=== PATIENT | male | born 1965 | race Caucasian/White ===

== ENCOUNTER 2018-04-24 18:09 | Emergency (ER) | payer BC, SELFPAY ==
[2018-04-24 18:12] VITALS: BP 119/80; PULSE 88; RESP 16; TEMP 36.7; O2SAT 98; BMI 27.1
--- NOTE | 2018-04-24 19:04 | RAD_ITS ---
STUDY: X-RAY - RIGHT KNEE REASON FOR EXAM: Male, 52 years old. Twisting injury TECHNIQUE: view(s) of the knee. COMPARISON: None. FINDINGS: Normal visualized distal femur. Normal visualized proximal tibia and fibula. Normal proximal tibiofibular articulation. Normal medial femorotibial compartment. Normal lateral femorotibial compartment. There is mild degenerative arthrosis of the patellofemoral articulation. There is a trace joint effusion. There is mild edema of the medial side of the knee. RAD/Knee 4 or More Views IMPRESSION: Soft tissue swelling medial aspect of the knee. No visualized fracture cannot exclude ligamentous injury. Electronically Signed: My Davis MD at 20:02 EST Tel , Service support ,
--- NOTE | 2018-04-24 21:03 | ED.VISSUMM ---
- ER Visit Summary Date of Service: 04/24/18 Chief Complaint: Right knee pain History of Present Illness: The patient is a 52 M who presents with right knee pain that began yesterday. Patient states he was walking when he felt the pain began in his right knee. Patient describes the pain is burning, throbbing, and tightness. Patient states pain is worse with flexion. Patient states the pain improves with rest. Patient states he has to stand at his job for long periods of time. Physical Examination: Vital signs are stable. Patient is afebrile. Patient is in no acute distress. Musculoskeletal exam reveals tenderness over the right knee. There is no effusion. There is no bony crepitance or step-off. Range of motion was slightly limited in flexion secondary to pain. There is no laxity appreciated. Varus and valgus stress test were negative. Enzo test was negative. Ronald's test was negative. Neurovascular exam was intact. Test Results: X-rays of the right knee were obtained. There is some degenerative changes and soft tissue swelling. There is no acute fracture loose body. Emergency Department Course and Treatment: Patient was instructed to ice and elevate the right knee. Patient was given a note for work to limit his standing and ambulation. Patient was instructed to take ibuprofen or Naprosyn as needed for pain. Patient understood and was agreeable with the plan. All questions were answered. Disposition: Discharge home Impression: Right knee pain This note was generated with [employer] dictation software. It may contain incorrect words, spelling, and punctuation that were not noted in review of the chart prior to signing ED Disposition - Plan for ED Patient: Disposition: Home or Assisted Living Chief Complaint: Lower Extremity Injury Diagnosis: Right knee pain Instructions: ED Meniscal Injury Knee Poss Prescriptions: Naproxen [Naprosyn] 500 mg PO BID PRN #20 tab Referrals: Олег Barry DO [Primary Care Provider] -
== END 2018-04-24 21:28 | disposition home or self-care (01) ==
PROVIDERS: Emergency Provider Emergency Medicine; Family Provider Student in an Organized Health Care Education/Training Program; PCP Student in an Organized Health Care Education/Training Program
DX: M25.561 Pain in right knee (principal); Z72.0 Tobacco use
CPT/HCPCS: 73564; 99282

== ENCOUNTER 2019-06-02 20:58 | Emergency (ER) | payer BC, SELFPAY ==
[2019-06-02 20:59] VITALS: BP 120/87; PULSE 115; RESP 18; TEMP 37.1; O2SAT 98; BMI 27.1
--- NOTE | 2019-06-02 21:27 | RAD_ITS ---
STUDY: X-RAY - LEFT KNEE REASON FOR EXAM: Male, 53 years old. Fall. Pain. TECHNIQUE: 4 view(s) of the knee. COMPARISON: 04/24/2018. FINDINGS: Normal visualized distal femur. Normal visualized proximal tibia and fibula. Normal proximal tibiofibular articulation. There is no demonstrated fracture. Normal medial femorotibial compartment. Normal lateral femorotibial compartment. Normal patellofemoral articulation. There is a soft tissue prominence in the suprapatellar region suggesting a small volume joint effusion. Chondrocalcinosis is seen of both menisci. The soft tissue structures are unremarkable. RAD/Knee 4 or More Views IMPRESSION: No acute fracture or dislocation. Small effusion. Electronically Signed: Eder Laurent MD at 21:41 EST , Service support ,
--- NOTE | 2019-06-02 21:38 | ED.DCSUM_ITS ---
- ER Visit Summary Date of Service: 06/02/19 Chief Complaint: Knee pain History of Present Illness: The patient is a 53 M with left knee pain since yesterday. He slipped on ice and his knee bent backwards. Pain is worse with use. He has a remote history of ligamentous injury and surgery to the right knee. No other injuries or complaints. Physical Examination: Inspection is unremarkable except for mild swelling to the left knee. Effusion noted. No laxity. Good extension. Range of motion intact. Normal strength and sensation distally. Test Results: X-rays unremarkable. Emergency Department Course and Treatment: Patient injured his left knee. Exam was reassuring. X-rays were unremarkable. This is likely soft tissue injury. Everything seems stable at this point, but I am advising rest, ice, elevation. Use anti-inflammatories for pain. [place] for breakthrough pain. Follow-up with primary care for recheck. Return for any new or worsening issues. Treatment Plan: As above Disposition: Discharge Impression: Left knee pain This note was generated with [employer] dictation software. It may contain incorrect words, spelling, and punctuation that were not noted in review of the chart prior to signing ED Disposition - Plan for ED Patient: Referrals: Олег Barry DO [Primary Care Provider] -
--- NOTE | 2019-06-02 21:40 | DCINST.ED_ITS ---
ED Disposition - Plan for ED Patient: Instructions: Knee Sprain Prescriptions: Hydrocodone Bitart/Apap 5-325 [[place] 5MG-325MG] 1 tab PO Q6H PRN PRN 2 Days #8 tab PRN Reason: Pain Prescription Printed Referrals: Олег Barry DO [Primary Care Provider] -
== END 2019-06-02 22:17 | disposition home or self-care (01) ==
LOC: ED 21:14
PROVIDERS: Emergency Provider Emergency Medicine; PCP Student in an Organized Health Care Education/Training Program
DX: M25.562 Pain in left knee (principal); M25.462 Effusion, left knee; Z72.0 Tobacco use
CPT/HCPCS: 73564; 99283

== ENCOUNTER 2023-09-28 10:45 | Emergency (ER) | payer SELFPAY ==
[2023-09-28 10:46] VITALS: BP 114/79; PULSE 93; RESP 14; TEMP 36.8; O2SAT 96; BMI 27.5
--- NOTE | 2023-09-28 11:31 | EX.ED.GUMALE ---
HPI History of Present Illness Chief Complaint: Male Pain/Injury Narrative Narrative: Patient is a 58-year-old male with no significant medical history does not see a physician regularly, presenting to the emergency department with what he is concerned with a inguinal hernia that has been ongoing for the last 1.5 months. 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 He has noticed it over the last 1.5 months however today, continue to stay out and look bigger than normal so he is here for evaluation. He denies any specific pain, denies any fever chills nausea or vomiting. He does have history of 1 hernia repair however this was years ago. He denies any difficulty using the restroom, denies any other abdominal surgeries. PFSH PFSH Medical History no medical history Allergy/AdvReac Type Severity Reaction Status Date / Time No Known Allergies Allergy Verified 09/28/23 10:46 Family History no significant family his Surgical History no surgical history Social History Smoking Status: Current every day smoker tobacco type: cigarettes ROS ROS ED ROS Narrative Constitutional: Negative for fever, chills, weight loss, weakness Eyes: Negative for vision loss, vision change, double vision ENT: Negative for any sore throat, ear pain, congestion Cardiovascular: Negative for any chest pain, tightness, palpitations Respiratory: Negative for any cough, sputum production, hemoptysis, dyspnea, dyspnea on exertion, orthopnea Gastrointestinal: Negative for any abdominal pain, nausea, vomiting, diarrhea, constipation, blood in stool, blood in vomit. Positive for lump to the inguinal area : Negative for any urinary frequency, dysuria, retention, blood in urine Muscle skeletal: Negative for any neck pain, back pain Neurological: Negative for any headache, syncope, dizziness Skin: Negative for any rashes, itching, abrasions, lacerations Psychiatric: Negative for any depression, anxiety, stress, suicidal ideation, homicidal ideation Hematologic: Negative for any excessive bruising, easy bleeding EXAM Physical Exam Narrative Exam Narrative: Vital signs reviewed. HEET: Head normocephalic atraumatic, TMs clear bilaterally. Posterior pharynx is clear, moist mucous membranes. Nares clear bilaterally. Neck: Supple with no lymphadenopathy or tenderness. No signs of meningismus. Cardiac: Regular rate and rhythm no murmurs gallops or rubs, equal peripheral pulses bilaterally. Respiratory: Lungs clear to auscultation bilaterally. No chest tenderness. Abdomen: Soft, nontender, nondistended. No abdominal bruit or pulsatile masses. No hepatosplenomegaly. Patient does have what appears to be a right-sided inguinal hernia, it is soft, easily reducible, there is no evidence of redness, active bowel sounds in all quadrants. Negative for any significant tenderness, no peritoneal signs. Extremities: No peripheral edema, no signs of gross trauma or deformity. Active full range of motion of all extremities. Neuro: Cranial nerves II through XII intact, no focal neurological deficits. Skin: Clean dry and intact with no rash, purpura, petechiae, vesicles or pustules. Backs/flank: No CVA tenderness, no midline spinal tenderness, no deformity. Psych: Normal mood and affect. No SI, HI or acute psychosis. Const Vital Signs: 09/28/23 10:46 Temperature 98.3 F Temperature Source Temporal Pulse Rate 93 Respiratory Rate 14 Blood Pressure 114/79 Blood Pressure Mean 90 Pulse Ox 96 Oxygen Delivery Method Room Air [facility] [place] MDM Treatment and Re-Evaluation Narrative: Differential diagnosis includes however is not limited to: Inguinal hernia, incarcerated hernia, bowel obstruction Patient appears to be in no obvious distress vital signs are stable, patient is nontoxic. Presenting to the emergency department with complaints of inguinal hernia to the right side. On my examination, while the patient was standing, the inguinal hernia was present. There is no erythema, there is no significant edema, there is no significant tenderness. I had the patient lay down, I was able to reduce the hernia without any difficulty. At this time, I do not believe that any immediate surgical intervention needed. I do believe the patient can follow-up outpatient. The patient is agreeable. The patient structured to ice the area, and to follow-up outpatient. He was given red flag signs to return such as worsening pain, redness, fever, chills, uncontrollable pain. He is happy with the plan of care, instructed return for any worsening symptoms. Discharge Plan Triage Chief Complaint: Male Pain/Injury ED Midlevel Provider: Diony Lou ED Provider: Kristine Torres Dx/Rx/DC Orders Clinical Impression: Inguinal hernia Instructions: Hernia Repair Surgery, How a Hernia Develops, ED Hernia (Adult) Stand Alone Forms: Work / School Excuse Primary Care Provider: Олег Barry Referrals: Олег Barry DO [Primary Care Provider] - Peyton Viera MD [Med Staff - Active Staff] - Activity Restrictions/Additional Instructions: This may come out several times a day. There was try to push it back in. Try to decrease lifting greater than 30 pounds. Please follow-up with surgery to get this resolved. Return for any worsening uncontrolled pain, firmness to the hernia, fever, chills. Print Language: Kinyarwanda Disposition Disposition: Home, Self Care
[2023-09-28 11:51] VITALS: BP 134/57; PULSE 81; RESP 16; TEMP 36.4; O2SAT 98
== END 2023-09-28 11:51 | disposition home or self-care (01) ==
PROVIDERS: Emergency Provider Emergency Medicine; PCP Student in an Organized Health Care Education/Training Program; Visit Provider Emergency Medicine
DX: K40.90 Unilateral inguinal hernia, without obstruction or gangrene, not specified as recurrent (principal); F17.210 Nicotine dependence, cigarettes, uncomplicated
CPT/HCPCS: 99282

== ENCOUNTER 2023-11-30 17:15 | Emergency (ER) | payer BC, SELFPAY ==
[2023-11-30 17:16] VITALS: BP 94/74; PULSE 113; RESP 18; TEMP 36.8; O2SAT 96; BMI 26.7
--- NOTE | 2023-11-30 17:46 | EDS_ITS ---
HPI History of Present Illness Chief Complaint: Laceration Informant: patient Narrative Narrative: 58-year-old male was cutting onions today when he inadvertently cut the distal tip of the right ring finger off. He notes that it continued to bleed. He washed it with tap water hydrogen peroxide and continued to bleed so he came to emergency. He notes his tetanus is not up-to-date but does not feel that it is high risk enough that to warrant an update. He is not on blood thinners. PFSH PFSH Allergy/AdvReac Type Severity Reaction Status Date / Time No Known Allergies Allergy Verified 11/30/23 17:16 Social History Smoking Status: Current every day smoker tobacco type: cigarettes ROS ROS ED Constitutional Constitutional ED: Denies chills or weight loss Eyes Eyes: Denies change in vision or diplopia ENT ENT ED: Denies ear pain, rhinorrhea or sore throat Cardiovascular Cardiovascular: Denies chest pain, orthopnea, palpitations or racing heartbeat Respiratory/Chest Respiratory/Chest: Denies cough, dyspnea or orthopnea Gastrointestinal Gastrointestinal: Denies abdominal pain, diarrhea, nausea or vomiting Genitourinary Genitourinary ED: Denies dysuria, hematuria or urinary frequency Musculoskeletal Musculoskeletal: Reports other Details: See history of present illness ; Denies arthralgias or myalgias Integumentary Denies abscess or rash Neurologic Neurologic: Denies headache(s) or weakness Psychiatric Psychiatric: Denies anxiety, depression, suicidal ideation or suicidal thoughts Endocrine Endocrinology: Denies polydipsia, polyphagia or polyuria Allergic/Immunologic Allergic/Immunologic ED: Denies mouth swelling, tongue swelling or urticaria EXAM Physical Exam Const Vital Signs: 11/30/23 17:16 Temperature 98.3 F Temperature Source Temporal Pulse Rate 113 H Respiratory Rate 18 Blood Pressure 94/74 Blood Pressure Mean 80 Pulse Ox 96 Oxygen Delivery Method Room Air Positive well nourished and well developed General Appearance ED: well developed HEENT Reports normocephalic, head/scalp atraumatic and moist mucous membranes Eyes PERRL and EOMs intact bilaterally Neck no lymphadenopathy, supple and no JVD Resp normal respiratory effort and clear to auscultation bilaterally Cardio regular rate, regular rhythm and no murmurs GI normal to inspection, nondistended, normoactive bowel sounds and non-tender Palpation: soft Back/Spine no CVA tenderness and normal ROM Extremity Extremity Narrative: Right ring finger distal tip shows skin avulsion of about a dime sized area. There is one central vessel in the center that is mildly bleeding dark red nonpulsatile blood. There is no nail involvement. No exposed bone. General Extremety ED: Negative for edema General Extremity: Negative for edema Neuro oriented x3 and CN's II-XII intact bilaterally Sensorium / Orientation: alert Motor Exam: strength 5/5 throughout Psych mental status grossly normal Mood & Affect: Negative for depressed or tearful Skin no rashes or lesions noted and no wounds MDM MDM MDM Narrative Medical decision making narrative: Direct pressure was applied as well as a tourniquet. We were able to get the bleeding slowed down. Gelfoam was applied and then direct pressure for 2 more minutes. The fingertip of a glob was then applied and then tube gauze followed by [place]. I suspect that this will further stop the bleeding. He was advised to keep the dressing on for 48 hours and then remove it followed by simple wound care. He is to return if any concerns for infection bleeding or worsening. Patient notes understanding the plan is comfortable with the History & Record Review Discussion w/independent historian: Patient Discharge Plan Triage Chief Complaint: Laceration ED Provider: Jim Rueda Dx/Rx/DC Orders Clinical Impression: Avulsion of finger tip, Bleeding from finger Instructions: ED Skin Tear (Skin Avulsion) Primary Care Provider: Олег Barry Referrals: Олег Barry DO [Primary Care Provider] - As Needed Print Language: Swedish Disposition Disposition: Home, Self Care
--- NOTE | 2023-11-30 17:58 | ED.RN ---
Patient left prior to receiving d/c instructions
== END 2023-11-30 17:59 | disposition home or self-care (01) ==
LOC: ED 17:53
PROVIDERS: Emergency Provider Emergency Medicine; PCP Student in an Organized Health Care Education/Training Program; Visit Provider Emergency Medicine
DX: S61.204A Unspecified open wound of right ring finger without damage to nail, initial encounter (principal); F17.210 Nicotine dependence, cigarettes, uncomplicated; A52.19 Other symptomatic neurosyphilis; Y93.G1 Activity, food preparation and clean up
CPT/HCPCS: 99282

== ENCOUNTER 2024-12-02 15:30 | Emergency (ER) | payer BC, SELFPAY ==
[2024-12-02 15:32] VITALS: BP 106/83; PULSE 92; RESP 16; TEMP 36.9; O2SAT 97; BMI 27.1
--- NOTE | 2024-12-02 16:27 | EDS_ITS ---
HPI History of Present Illness Chief Complaint: Wound Informant: patient Narrative Narrative: Wound check left upper back. Mowed the lawn yesterday, today noted increasing pain bump on his left upper back. No fevers no drainage. No diabetes history. Prior similar symptoms: No PFSH PFSH Medical History no medical history Allergy/AdvReac Type Severity Reaction Status Date / Time No Known Allergies Allergy Verified 12/02/24 15:32 Family History no significant family his Surgical History no surgical history Social History Smoking Status: Current every day smoker tobacco type: cigarettes ROS ROS ED Constitutional Constitutional ED: Denies fever(s) Cardiovascular Cardiovascular: Denies chest pain Respiratory/Chest Respiratory/Chest: Denies cough Gastrointestinal Gastrointestinal: Denies diarrhea or vomiting Musculoskeletal Musculoskeletal: Denies none Integumentary Reports abscess; Denies rash or wounds Neurologic Neurologic: Denies weakness EXAM Physical Exam Const Vital Signs: 12/02/24 15:32 12/02/24 18:39 Temperature 98.4 F 98.4 F Temperature Source Oral Pulse Rate 92 92 Respiratory Rate 16 16 Blood Pressure 106/83 H 106/83 H Blood Pressure Mean 90 90 Pulse Ox 97 97 Oxygen Delivery Method Room Air Positive well nourished and well developed General Appearance ED: well developed HEENT normocephalic and atraumatic Eyes General Eye ED: Yes normal appearance of both eyes Neck full ROM Resp normal respiratory effort and normal air movement Cardio regular rate and regular rhythm GI soft to palpation Back/Spine Back/Spine Narrative: Upper back left side just superior medial to the scapula 3 x 3 cm induration and mild erythema no active drainage. Extremity normal to inspection and full ROM Neuro oriented x3 Skin Skin Narrative: See above MDM MDM MDM Narrative Medical decision making narrative: Interventions / MDM: Differential diagnosis: Abscess, insect bite Diagnosis considered but do not suspect: N/A My EKG interpretation: N/A Imaging independently reviewed and interpreted by myself: N/A External documents reviewed: N/A Test considered but not ordered:N/A ED course: Patient area of induration left upper back, started today getting larger. Afebrile is nontoxic. Discussed incision and drainage as it is expanding. He agrees. Procedure note: Written consent obtained. Normal sterile conditions. Alcohol prep of the skin performed. 1% lidocaine 5 cc used for local analgesia. Additional skin prep performed. 11 blade, incision bloody drainage no exudates. Loculations were broken. Flushed with normal saline. Dressing was placed. Patient tolerated procedure well. Discussed wound care with the patient with dressing changes. Outpatient follow- up with Dr. Nina snyder. All questions were answered. Re-evaluation: stable Disposition discussed with patient/family/significant other: Patient Case discussed with consulting clinician: N/A This note was generated with [employer] dictation software. It may contain incorrect words, spelling, and punctuation that were not noted in checking the note before signing. Discharge Plan Triage Chief Complaint: Wound ED Provider: Santo Fisher Dx/Rx/DC Orders Clinical Impression: Abscess, Insect bite Instructions: ED Abscess Incision And Drainage, ED Infected Insect Bite or Sting Primary Care Provider: Олег Barry Referrals: Олег Barry DO [Primary Care Provider] - 1 Week Activity Restrictions/Additional Instructions: Your wound was incised and drained. There is no exudative drainage. This should help your wound improved. Follow-up with your doctor for wound check. Daily dressing changes. Any fevers chills worsening symptoms, return to the ED for reevaluation. Print Language: Guyanese Disposition Disposition: Home, Self Care Discharge Date/Time: 12/02/24 18:39
[2024-12-02 18:39] VITALS: BP 106/83; PULSE 92; RESP 16; TEMP 36.9; O2SAT 97
== END 2024-12-02 18:39 | disposition home or self-care (01) ==
PROVIDERS: Emergency Provider Emergency Medicine; PCP Student in an Organized Health Care Education/Training Program; Visit Provider Emergency Medicine
DX: L02.212 Cutaneous abscess of back [any part, except buttock and flank] (principal); F17.210 Nicotine dependence, cigarettes, uncomplicated
CPT/HCPCS: 10060; 99282